=== PATIENT | female | born 1980 | race African-American/Black ===

== ENCOUNTER 2018-06-19 09:53 | Emergency (ER) | payer OTHER ==
[~2018-06-19] VITALS: Ht 154.9 cm; Wt 81.7 kg
[~2018-06-19 09:53] MED LIST: NORCO 5-325 TA1 EACH PO; PENICILLIN V P500 MG PO
[2018-06-19 09:55] VITALS: BP 136/64
[2018-06-19] MEDS ORDERED: NOHOMEMEDICATIONS (10:10)
[2018-06-19] MEDS ORDERED: NORCO 5-325 TA1 EACH PO (10:14)
[2018-06-19] MEDS ORDERED: IBUPROFEN 600600 M1 PO (10:14)
[2018-06-19] MEDS ORDERED: AMOXICILLIN 50500 M1 PO (10:14)
[2018-06-19] MEDS ORDERED: SENNA-DOCUSATE1 EAC1 PO (10:14)
== END 2018-06-19 10:30 | disposition home or self-care (01) ==
LOC: ER 09:53
DX: K03.81 Cracked tooth (principal)

== ENCOUNTER 2018-06-30 16:27 | Emergency (ER) | payer OTHER ==
[~2018-06-30] VITALS: Ht 154.9 cm; Wt 82.1 kg
[~2018-06-30 16:27] MED LIST changes: +AMOXICILLIN 50500 M1 PO; +IBUPROFEN 600600 M1 PO; +NOHOMEMEDICATIONS; +SENNA-DOCUSATE1 EAC1 PO
[2018-06-30] MEDS ORDERED: NORCO 10-325 T1 EACH PO (16:45)
[2018-06-30] MEDS ORDERED: PENICILLIN V P500 MG PO (16:45)
[2018-06-30 16:50] VITALS: BP 145/86
== END 2018-06-30 16:50 | disposition home or self-care (01) ==
LOC: ER 16:27
DX: K02.9 Dental caries, unspecified (principal); R51 Headache

== ENCOUNTER 2018-08-28 15:46 | Emergency (ER) | payer OTHER ==
[~2018-08-28] VITALS: Ht 157.5 cm; Wt 81.7 kg
[~2018-08-28 15:46] MED LIST changes: +NORCO 10-325 T1 EACH PO
[2018-08-28] MEDS ORDERED: NORCO 10-325 T1 EACH PO (17:12)
[2018-08-28] MEDS ORDERED: PENICILLIN V P500 MG PO (17:12)
[2018-08-28 17:57] VITALS: BP 154/95
== END 2018-08-28 18:01 | disposition home or self-care (01) ==
LOC: ER 15:46
DX: K08.89 Other specified disorders of teeth and supporting structures (principal); R51 Headache

== ENCOUNTER 2018-10-02 16:12 | Emergency (ER) | payer OTHER ==
[~2018-10-02] VITALS: Ht 154.9 cm; Wt 81.7 kg
[2018-10-02 16:12] VITALS: BP 138/75
[2018-10-02] MEDS ORDERED: CLEOCIN HCL150 MG PO (16:18)
[2018-10-02] MEDS ORDERED: NORCO 5-325 TA1 EACH PO (16:39)
[2018-10-02] MEDS ORDERED: MOBIC7.5 MG PO (16:39)
== END 2018-10-02 16:30 | disposition home or self-care (01) ==
LOC: ER 16:12
DX: K08.89 Other specified disorders of teeth and supporting structures (principal); R22.0 Localized swelling, mass and lump, head